=== PATIENT | male | born 1945 | race Caucasian/White ===

== ENCOUNTER 2016-08-04 11:08 | Emergency (ER) | payer MEDICARE, OTHER ==
[2016-08-04] MEDS ORDERED: HYDROmorphone 1 MG/ML Syringe IM ONE (11:46)
[2016-08-04] MEDS ORDERED: Ketorolac 30 MG/ML SDV IM ONE (11:46)
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
[2016-08-04] MEDS ORDERED: Sodium Chloride 0.9% 10 ML Syringe FLUSH PRN (12:02)
--- NOTE | 2016-08-04 13:38 | CR ---
Pelvis: AP view of the pelvis was obtained. Joint space narrowing is noted within both hips slightly worse on the right side. Sacroiliac joints appear within normal limits. Mild degenerative change is partially seen within the lower lumbar spine. Bony structures are osteopenic. Nothing acute is identified. Impression: 1. Joint space narrowing within both hips as well as degenerative change partially visualized within the lower lumbar spine. 2. Nothing acute is appreciated on AP pelvis study. Diagnostic code #2
[2016-08-04] MEDS ORDERED: predniSONE 20 MG Tab PO ONE (14:21)
[2016-08-04 16:47] VITALS: BP 130/84
== END 2016-08-04 15:15 | disposition home or self-care (01) ==
LOC: JD.ED 11:08
DX: M53.3 Sacrococcygeal disorders, not elsewhere classified (principal); R31.9 Hematuria, unspecified; Z79.82 Long term (current) use of aspirin; Z79.899 Other long term (current) drug therapy
CPT/HCPCS: 36415; 72170; 80053; 81001; 85025; 86140; 96372; 99284; A9270; J1170; J1885; J7050; 99283

== ENCOUNTER 2019-09-21 08:54 | Day surgery (SDC) | payer OTHER ==
[~2019-09-21 08:54] MED LIST: Lactated Ringers 1,000 ML IV SCH; Lidocaine 1% 4 ML ONE; Lidocaine 1%/Sod Bicarbonate in NS 8.4% 1 ML Syringe IDERM PRN; Midazolam 1 MG/ML 2 ML SDV ONE; Propofol 200 MG/20 ML SDV ONE; Sodium Chloride 0.9% 10 ML Syringe FLUSH PRN; fentaNYL 100 MCG/2 ML SDV ONE
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
--- NOTE | 2019-09-21 11:23 | PCM.PRNOTE ---
- Free Text/Narrative Note: Date: 09/21/2019 Procedure: screening colonoscopy Endoscopist: Zbigniew Chu MD Findings: nodular prostatic lesion palpated. B.B. sized palpable, well- circumscribed mobile subcutaneous lesion noted near anoderm. No polyps, no diverticular disease. Minor internal hemorrhoids. Detailed Report: The patient was taken to the endoscopy suite and placed in left lateral decubitus position. Time out was performed and monitored anesthesia care initiated. The anus appeared normal. There was a tiny palpable subcutaneous nodule near the anoderm. Digital exam was remarkable for a palpable nodule at the posterior surface of the prostate gland. The colonoscope was lubricated and inserted anally. The cecum was reached, and the appendiceal orifice visualized. Although I thought I saw a small polyp on the way in, very careful monitoring on withdrawal, twice, failed to show any polyps. The prep was very good. No divert icular disease was noted. There were minor internal hemorrhoids seen on retroflexion within the rectum. Air was then evacuated and the scope withdrawn. The patient tolerated the procedure well.
--- NOTE | 2019-09-21 11:24 | PCM48HPAN ---
Post Anesthesia Note - EVALUATION WITHIN 48HRS OF ANESTHETIC Vital Signs in Normal Range: Yes Patient Participated in Evaluation: Yes Respiratory Function Stable: Yes Airway Patent: Yes Cardiovascular Function Stable: Yes Hydration Status Stable: Yes Pain Control Satisfactory: Yes Nausea and Vomiting Control Satisfactory: Yes Mental Status Recovered: Yes Vital Signs: Last Vital Signs Temp 98.0 F 09/21/19 08:50 Pulse 79 09/21/19 08:50 Resp 16 09/21/19 08:50 BP 154/78 H 09/21/19 08:50 Pulse Ox 96 09/21/19 08:50 1116 76 16 98.0 131/74 92%
[2019-09-21 11:49] VITALS: BP 147/73; PULSE 69
== END 2019-09-21 12:07 | disposition home or self-care (01) ==
LOC: JD.SDS 08:54
PROVIDERS: ATTEND Surgery
DX: Z12.11 Encounter for screening for malignant neoplasm of colon (principal); K64.8 Other hemorrhoids; K62.89 Other specified diseases of anus and rectum; Z88.8 Allergy status to other drugs, medicaments and biological substances; Z79.82 Long term (current) use of aspirin; Z79.899 Other long term (current) drug therapy
CPT/HCPCS: 45378; J2001; J2250; J2704; J3010; J7120; 00812

== ENCOUNTER → 2021-04-28 | Day surgery (SDC) | payer MEDICARE, OTHER ==
[~2021-04-28] MED LIST changes: +Acetaminophen 325 MG Tab PO SCH; +HYDROmorphone 0.5 MG/0.5 ML Syringe IVPUSH PRN; +Lactated Ringers 1,000 ML ONE; -Lidocaine 1% 4 ML ONE; -Midazolam 1 MG/ML 2 ML SDV ONE; +Ondansetron 4 MG/2 ML SDV IVPUSH PRN; +Ondansetron 4 MG/2 ML SDV ONE; +Pregabalin 25 MG Cap PO SCH; +Sodium Chloride 0.9% 10 ML Syringe FLUSH SCH; +ceFAZolin 1 GM Vial ONE; +ePHEDrine 50 MG/ML SDV ONE; +fentaNYL 100 MCG/2 ML SDV IVPUSH PRN; +oxyCODONE 5 MG Tab PO ONE; +oxyCODONE ER 10 MG TAB.ER PO SCH
[2021-04-28] MEDS: Vancomycin 1 GM SDV ONE ×2 (08:00→08:17)
[2021-04-28] MEDS: Morphine 8 MG, EPINEPHrine 0.3 MG, Cefuroxime 750 MG, Ketorolac 30 MG, Sodium Chloride ... PRN ×10 (08:01→08:17)
[2021-04-28 11:11] VITALS: PULSE 72
[2021-04-28 13:10] VITALS: BP 128/72
== END | disposition home or self-care (01) ==
LOC: JD.SDS 06:48
PROVIDERS: ATTEND Orthopaedic Surgery
DX: M16.12 Unilateral primary osteoarthritis, left hip (principal); I10 Essential (primary) hypertension; E55.9 Vitamin D deficiency, unspecified; Z88.8 Allergy status to other drugs, medicaments and biological substances; Z79.82 Long term (current) use of aspirin; Z79.899 Other long term (current) drug therapy; Z98.890 Other specified postprocedural states
CPT/HCPCS: 27130; 36415; 73501; 86850; 86900; 86901; 97110; 97116; 97161; A9270; C1713; C1776; J0171; J0690; J0697; J1885; J2270; J2370; J2405; J2704; J3010; J3370; J7120; 01214; 99100

== ENCOUNTER 2021-05-04 14:52 | Emergency (ER) | payer OTHER ==
[2021-05-04 15:28] VITALS: BP 139/82; PULSE 81
== END 2021-05-04 19:20 | disposition home or self-care (01) ==
LOC: JD.ED 14:52
DX: R60.0 Localized edema (principal); E66.9 Obesity, unspecified; Z68.32 Body mass index [BMI] 32.0-32.9, adult; Z88.8 Allergy status to other drugs, medicaments and biological substances
CPT/HCPCS: 93971-26-LT; 93971-LT; 99283-25; 99284

== ENCOUNTER 2023-07-10 16:09 | Emergency (ER) | payer MEDICARE, OTHER ==
[2023-07-10 16:43] LABS: BASOPHILS PERCENT AUTO 0.2 % (0.0-1.0); HEMATOCRIT 47.5 % (42.0-52.0); HEMOGLOBIN 15.7 gm/dl (14.0-18.0); IMMATURE GRAN ABSOLUTE AUTO 0.08 K/mm3 (0.00-0.05); IMMATURE GRAN PERCENT AUTO 0.7 % (0.0-0.4); LYMPHOCYTES ABSOLUTE AUTO 0.5 K/mm3 (1.0-4.8); LYMPHOCYTES PERCENT AUTO 4.7 % (24.0-44.0); MEAN CORPUSCULAR HEMOGLOBIN 27.9 pg (28.0-32.0); MEAN CORPUSCULAR HGB CONC 33.1 g/dl (32.0-36.0); MEAN CORPUSCULAR VOLUME 84.5 fl (83.0-99.0); MEAN PLATELET VOLUME 8.6 fl (9.4-12.4); MONOCYTES ABSOLUTE AUTO 0.8 K/mm3 (0.0-0.8); MONOCYTES PERCENT AUTO 7.4 % (0.0-8.0); NEUTROPHILS ABSOLUTE AUTO 9.5 K/mm3 (1.8-7.7); PLATELET COUNT,PLT 163 K/mm3 (150-400); RED BLOOD CELL COUNT 5.62 M/mm3 (4.52-5.90)
[2023-07-10] MEDS: Sodium Chloride 0.9% 1,000 ML IV SCH (16:47)
[2023-07-10] MEDS: Loperamide 2 MG Cap PO ONE (16:47)
[2023-07-10] MEDS: Sodium Chloride 0.9% 10 ML Syringe FLUSH PRN (16:48)
[2023-07-10 16:57] LABS: APPEARANCE,URINE CLEAR (Clear); BILIRUBIN,URINE NEGATIVE (Negative); COLOR,URINE YELLOW (Yellow); GLUCOSE,URINE NEGATIVE (Negative); KETONES,URINE TRACE (Negative); LEUKOCYTE ESTERASE,URINE NEGATIVE (Negative); NITRITE,URINE NEGATIVE (Negative); OCCULT BLOOD,URINE 2+ (Negative); PH,URINE 5.5 (5.0-8.0); PROTEIN,URINE 1+ (Negative); UROBILINOGEN,URINE 0.2 (0.2-1.0)
[2023-07-10 17:09] LABS: BACTERIA,URINE MODERATE /hpf (FEW); MUCUS,URINE MODERATE /hpf (FEW); SQUAMOUS EPITHELIAL CELLS,UR 0-5 /hpf (0-5)
[2023-07-10 17:20] LABS: A/G RATIO 0.9 (1-2); ALBUMIN 3.4 g/dl (3.4-5.0); ANION GAP 18.6 (5-15); BILIRUBIN TOTAL 0.8 mg/dL (0.2-1.0); BUN/CREATININE RATIO 15.7 (14-18); C-REACTIVE PROTEIN 5.73 mg/dL (<0.30); CALCIUM 8.2 mg/dL (8.5-10.1); CREATININE 1.4 mg/dL (0.7-1.3); EST CRCL DRUG DOSING (CG) 37.22 mL/min; MAGNESIUM 1.7 mg/dL (1.8-2.4); POTASSIUM,K 3.6 mEq/L (3.5-5.1); PROTEIN TOTAL,TP 7.2 g/dl (6.4-8.2)
[2023-07-10 17:21] LABS: CORONAVIRUS COVID-19 NAA NEGATIVE (NEGATIVE); INFLUENZA A NAA NEGATIVE (NEGATIVE); RESPIRATORY SYNCYTIAL VIR NAA NEGATIVE (NEGATIVE)
[2023-07-10 18:56] VITALS: BP 122/77; PULSE 66
== END 2023-07-10 18:56 | disposition home or self-care (01) ==
LOC: JD.ED 16:09
DX: N20.0 Calculus of kidney (principal); R94.31 Abnormal electrocardiogram [ECG] [EKG]; R91.1 Solitary pulmonary nodule; Z88.8 Allergy status to other drugs, medicaments and biological substances; R19.7 Diarrhea, unspecified; Z79.82 Long term (current) use of aspirin; E78.00 Pure hypercholesterolemia, unspecified; Z86.16 Personal history of COVID-19
CPT/HCPCS: 0241U; 36415; 71045; 74176; 80053; 81001; 83690; 83735; 83880; 84484; 85025; 86140; 93005; 96360; 99285; A9270; J3490; J7030

== ENCOUNTER 2024-10-26 09:18 | Inpatient (IN) | payer MEDICARE, OTHER ==
[2024-10-26] MEDS ORDERED: Ondansetron 4 MG/2 ML SDV IV PRN (10:03)
[2024-10-26] MEDS: Sennosides/Docusate Sodium 50-8.6 MG Tab PO SCH (20:31)
[2024-10-27] MEDS: Ondansetron 4 MG Tab.DIS PO PRN (13:08)
[2024-10-27] MEDS: Magnesium Citrate Solution 296 ML Bottle PO ONE (17:21)
[2024-10-27] MEDS: Sennosides/Docusate Sodium 50-8.6 MG Tab PO SCH (21:51)
[2024-10-28] MEDS: Acetaminophen/oxyCODONE 325-5 MG Tab PO PRN (00:36)
[2024-10-28] MEDS: Sennosides/Docusate Sodium 50-8.6 MG Tab PO SCH (08:20)
[2024-11-01 10:06] LABS: BASOPHILS ABSOLUTE AUTO 0.1 K/mm3 (0.0-0.2); BASOPHILS PERCENT AUTO 0.3 % (0.0-1.0); EOSINOPHILS ABSOLUTE AUTO 0.0 K/mm3 (0.0-0.4); EOSINOPHILS PERCENT AUTO 0.1 % (0.0-6.0); IMMATURE GRAN ABSOLUTE AUTO 0.48 K/mm3 (0.00-0.05); IMMATURE GRAN PERCENT AUTO 2.0 % (0.0-0.4); LYMPHOCYTES ABSOLUTE AUTO 0.5 K/mm3 (1.0-4.8); LYMPHOCYTES PERCENT AUTO 2.1 % (24.0-44.0); MEAN PLATELET VOLUME 8.5 fl (9.4-12.4); MONOCYTES ABSOLUTE AUTO 1.3 K/mm3 (0.0-0.8); MONOCYTES PERCENT AUTO 5.2 % (0.0-8.0); NEUTROPHILS ABSOLUTE AUTO 21.8 K/mm3 (1.8-7.7); NEUTROPHILS PERCENT AUTO 90.3 % (41.0-71.0); NRBC ABSOLUTE 0.00 (0.00-0.02); NRBC PERCENT 0.0 % (0.0-0.2); RED BLOOD CELL COUNT 4.11 M/mm3 (4.52-5.90); WHITE BLOOD CELL COUNT,WBC 24.12 K/mm3 (3.9-11.3)
[2024-11-01 10:25] LABS: PLATELET COUNT,PLT 524 K/mm3 (150-400)
[2024-11-01 10:37] LABS: A/G RATIO 0.4 (1-2); ALANINE AMINOTRANSFERASE,ALT 81.0 U/L (16-63); ASPARTATE AMNIOTRANSFERASE,AST 21.0 U/L (15-37); BILIRUBIN TOTAL 0.8 mg/dL (0.2-1.0); BLOOD UREA NITROGEN,BUN 94.0 mg/dL (7-18); CARBON DIOXIDE,CO2 24.0 mEq/L (21-32); CHLORIDE,CL 100.0 mEq/L (98-107); CREATININE 4.9 mg/dL (0.7-1.3); EST CRCL DRUG DOSING (CG) 10.46 mL/min; ESTIMATED GFR 11.0 mL/min (>60); GLUCOSE RANDOM 156.0 mg/dL (70-99); POTASSIUM,K 5.6 mEq/L (3.5-5.1); PROTEIN TOTAL,TP 7.1 g/dl (6.4-8.2); SODIUM,NA 135.0 mEq/L (136-145)
[2024-11-01] MEDS: Calcium Gluconate 10% 1 GM/10 ML SDV IVPUSH STA (11:24)
[2024-11-01] MEDS: 50% Dextrose in Water 50 ML Syringe IVPUSH ONE (11:33)
[2024-11-01] MEDS: Insulin Regular, Human 100 Units/ML 10 ML Vial IV ONE (11:33)
[2024-11-01] MEDS ORDERED: Sodium Chloride 0.9% 10 ML Syringe FLUSH PRN (11:41)
[2024-11-01 11:49] LABS: PH,VENOUS 7.52 (7.30-7.40)
[2024-11-01 11:50] LABS: BASE EXCESS VENOUS 1.6 (-4.0-2.0); BICARBONATE,VENOUS 23.7 meq/L (22-26); O2 SATURATION VENOUS 83.4; PCO2 VENOUS 29.0 mmHg (41-51); PO2 VENOUS 49.0 mmHG (40-80)
[2024-11-01 12:05] LABS: LACTIC ACID 1.8 mmol/L (0.4-2.0)
[2024-11-01 12:19] LABS: APPEARANCE,URINE CLEAR (Clear); GLUCOSE,URINE NEGATIVE (Negative); OCCULT BLOOD,URINE 3+ (Negative)
[2024-11-01 12:29] LABS: EPITHELIAL CELLS,URINE 0-5 /hpf (0-5)
[2024-11-01] MEDS: VANCOmycin 1.5 GM/300 ML 1.5 GM in Premix Bag 1 BAG IV ONE (13:35)
[2024-11-01 14:39] VITALS: BP 111/51; PULSE 104
[2024-11-01] MEDS ORDERED: Sodium Chloride 0.9% 10 ML Syringe FLUSH SCH (21:00)
== END 2024-11-01 11:11 | disposition critical access hospital (66) | DRG 947 ==
LOC: JD.MS 10:00
PROVIDERS: ADMIT Family Medicine; ATTEND Student in an Organized Health Care Education/Training Program
DX: R53.1 Weakness (principal); A41.9 Sepsis, unspecified organism; N17.9 Acute kidney failure, unspecified; E78.00 Pure hypercholesterolemia, unspecified; I10 Essential (primary) hypertension; Z88.8 Allergy status to other drugs, medicaments and biological substances; Z79.82 Long term (current) use of aspirin; Z79.899 Other long term (current) drug therapy; Z79.01 Long term (current) use of anticoagulants; H91.90 Unspecified hearing loss, unspecified ear; H54.7 Unspecified visual loss; K21.9 Gastro-esophageal reflux disease without esophagitis; M19.90 Unspecified osteoarthritis, unspecified site; F41.9 Anxiety disorder, unspecified; E66.9 Obesity, unspecified; Z86.16 Personal history of COVID-19; Z90.89 Acquired absence of other organs; Z96.643 Presence of artificial hip joint, bilateral; R93.89 Abnormal findings on diagnostic imaging of other specified body structures; K59.00 Constipation, unspecified; N40.1 Benign prostatic hyperplasia with lower urinary tract symptoms; R33.8 Other retention of urine; R73.03 Prediabetes; E87.5 Hyperkalemia
CPT/HCPCS: 36415; 51798; 71045; 71045-26; 74018; 74018-26; 80053; 81001; 82803; 83605; 83735; 85025; 86140; 87040; 87086; 93005; 94760; 94761; 97110-GP; 97112-GP; 97116-GP; 97162-GP; 97166-GO; 97530-GO; 97530-GP; A9270-GY; J0612; J1815-GY; J2543; J3375; J7030

== ENCOUNTER 2024-11-01 13:38 | Inpatient (IN) | payer MEDICARE, OTHER ==
[2024-11-01] MEDS ORDERED: Ondansetron 4 MG Tab.DIS PO PRN (13:52)
[2024-11-01] MEDS ORDERED: Sodium Chloride 0.9% 10 ML Syringe FLUSH PRN ×2 (13:52)
[2024-11-01] MEDS: VANCOmycin 1.5 GM/300 ML 1.5 GM in Premix Bag 1 BAG IV ONE (16:19)
[2024-11-01 18:15] LABS: BLOOD UREA NITROGEN,BUN 73.0 mg/dL (7-18); CARBON DIOXIDE,CO2 24.0 mEq/L (21-32); CHLORIDE,CL 106.0 mEq/L (98-107); CREATININE 3.2 mg/dL (0.7-1.3); EST CRCL DRUG DOSING (CG) 16.02 mL/min; ESTIMATED GFR 19.0 mL/min (>60); GLUCOSE RANDOM 235.0 mg/dL (70-99); POTASSIUM,K 5.1 mEq/L (3.5-5.1); SODIUM,NA 140.0 mEq/L (136-145)
[2024-11-01] MEDS: Sodium Chloride 0.9% 10 ML Syringe FLUSH SCH ×2 (20:14)
[2024-11-01] MEDS: Sennosides/Docusate Sodium 50-8.6 MG Tab PO SCH (20:15)
[2024-11-01] MEDS: Insulin Lispro 100 Unit/ML 3 ML KwikPen SUBCUT SCH (21:37)
[2024-11-02 04:31] LABS: BASOPHILS ABSOLUTE AUTO 0.1 K/mm3 (0.0-0.2); BASOPHILS PERCENT AUTO 0.3 % (0.0-1.0); EOSINOPHILS ABSOLUTE AUTO 0.0 K/mm3 (0.0-0.4); EOSINOPHILS PERCENT AUTO 0.2 % (0.0-6.0); IMMATURE GRAN ABSOLUTE AUTO 0.62 K/mm3 (0.00-0.05); IMMATURE GRAN PERCENT AUTO 3.0 % (0.0-0.4); LYMPHOCYTES ABSOLUTE AUTO 1.0 K/mm3 (1.0-4.8); LYMPHOCYTES PERCENT AUTO 4.9 % (24.0-44.0); MEAN PLATELET VOLUME 8.8 fl (9.4-12.4); MONOCYTES ABSOLUTE AUTO 1.8 K/mm3 (0.0-0.8); MONOCYTES PERCENT AUTO 8.8 % (0.0-8.0); NEUTROPHILS ABSOLUTE AUTO 17.1 K/mm3 (1.8-7.7); NEUTROPHILS PERCENT AUTO 82.8 % (41.0-71.0); NRBC ABSOLUTE 0.00 (0.00-0.02); NRBC PERCENT 0.0 % (0.0-0.2); PLATELET COUNT,PLT 448 K/mm3 (150-400); RED BLOOD CELL COUNT 3.22 M/mm3 (4.52-5.90); WHITE BLOOD CELL COUNT,WBC 20.59 K/mm3 (3.9-11.3)
[2024-11-02 05:05] LABS: A/G RATIO 0.4 (1-2); ALANINE AMINOTRANSFERASE,ALT 81 U/L (16-63); ASPARTATE AMNIOTRANSFERASE,AST 32 U/L (15-37); BILIRUBIN TOTAL 0.6 mg/dL (0.2-1.0); BLOOD UREA NITROGEN,BUN 50 mg/dL (7-18); CARBON DIOXIDE,CO2 25 mEq/L (21-32); CHLORIDE,CL 111 mEq/L (98-107); CREATININE 1.8 mg/dL (0.7-1.3); EST CRCL DRUG DOSING (CG) 28.47 mL/min; ESTIMATED GFR 38 mL/min (>60); GLUCOSE RANDOM 144 mg/dL (70-99); POTASSIUM,K 4.5 mEq/L (3.5-5.1); PROTEIN TOTAL,TP 5.8 g/dl (6.4-8.2); SODIUM,NA 142 mEq/L (136-145)
[2024-11-02] MEDS: Sodium Chloride 0.9% 10 ML Syringe FLUSH PRN (11:17)
[2024-11-02] MEDS: Iopamidol 755 Mg/ML 100 ML Bottle IVPUSH ONE (11:17)
[2024-11-02] MEDS: VANCOmycin 1.25 GM/250 ML 1.25 GM in Premix Bag 1 BAG IV SCH (11:56)
[2024-11-03 05:07] LABS: A/G RATIO 0.3 (1-2); ALANINE AMINOTRANSFERASE,ALT 79.0 U/L (16-63); ASPARTATE AMNIOTRANSFERASE,AST 29.0 U/L (15-37); BILIRUBIN TOTAL 0.4 mg/dL (0.2-1.0); BLOOD UREA NITROGEN,BUN 23.0 mg/dL (7-18); CARBON DIOXIDE,CO2 27.0 mEq/L (21-32); CHLORIDE,CL 112.0 mEq/L (98-107); CREATININE 0.9 mg/dL (0.7-1.3); EST CRCL DRUG DOSING (CG) 56.94 mL/min; ESTIMATED GFR 86.0 mL/min (>60); GLUCOSE RANDOM 115.0 mg/dL (70-99); POTASSIUM,K 4.2 mEq/L (3.5-5.1); PROTEIN TOTAL,TP 5.7 g/dl (6.4-8.2); SODIUM,NA 145.0 mEq/L (136-145)
[2024-11-03 05:09] LABS: BASOPHILS ABSOLUTE AUTO 0.1 K/mm3 (0.0-0.2); BASOPHILS PERCENT AUTO 0.8 % (0.0-1.0); EOSINOPHILS ABSOLUTE AUTO 0.8 K/mm3 (0.0-0.4); EOSINOPHILS PERCENT AUTO 5.5 % (0.0-6.0); IMMATURE GRAN ABSOLUTE AUTO 0.63 K/mm3 (0.00-0.05); IMMATURE GRAN PERCENT AUTO 4.3 % (0.0-0.4); LYMPHOCYTES ABSOLUTE AUTO 1.2 K/mm3 (1.0-4.8); LYMPHOCYTES PERCENT AUTO 8.4 % (24.0-44.0); MEAN PLATELET VOLUME 8.7 fl (9.4-12.4); MONOCYTES ABSOLUTE AUTO 1.1 K/mm3 (0.0-0.8); MONOCYTES PERCENT AUTO 7.8 % (0.0-8.0); NEUTROPHILS ABSOLUTE AUTO 10.7 K/mm3 (1.8-7.7); NEUTROPHILS PERCENT AUTO 73.2 % (41.0-71.0); NRBC ABSOLUTE 0.00 (0.00-0.02); NRBC PERCENT 0.0 % (0.0-0.2); PLATELET COUNT,PLT 454 K/mm3 (150-400); RED BLOOD CELL COUNT 3.14 M/mm3 (4.52-5.90); WHITE BLOOD CELL COUNT,WBC 14.57 K/mm3 (3.9-11.3)
[2024-11-03] MEDS: Magnesium Sulfate 2 GM/50 mL 2 GM in Premix Bag 1 BAG IV ONE (12:57)
[2024-11-04 05:44] LABS: BASOPHILS ABSOLUTE AUTO 0.1 K/mm3 (0.0-0.2); BASOPHILS PERCENT AUTO 0.7 % (0.0-1.0); EOSINOPHILS ABSOLUTE AUTO 0.9 K/mm3 (0.0-0.4); EOSINOPHILS PERCENT AUTO 6.5 % (0.0-6.0); IMMATURE GRAN ABSOLUTE AUTO 0.76 K/mm3 (0.00-0.05); IMMATURE GRAN PERCENT AUTO 5.4 % (0.0-0.4); LYMPHOCYTES ABSOLUTE AUTO 1.1 K/mm3 (1.0-4.8); LYMPHOCYTES PERCENT AUTO 7.9 % (24.0-44.0); MEAN PLATELET VOLUME 8.4 fl (9.4-12.4); MONOCYTES ABSOLUTE AUTO 0.9 K/mm3 (0.0-0.8); MONOCYTES PERCENT AUTO 6.5 % (0.0-8.0); NEUTROPHILS ABSOLUTE AUTO 10.3 K/mm3 (1.8-7.7); NEUTROPHILS PERCENT AUTO 73.0 % (41.0-71.0); NRBC ABSOLUTE 0.00 (0.00-0.02); NRBC PERCENT 0.0 % (0.0-0.2); PLATELET COUNT,PLT 458 K/mm3 (150-400); RED BLOOD CELL COUNT 3.25 M/mm3 (4.52-5.90); WHITE BLOOD CELL COUNT,WBC 14.07 K/mm3 (3.9-11.3)
[2024-11-04 06:28] LABS: A/G RATIO 0.3 (1-2); ALANINE AMINOTRANSFERASE,ALT 95.0 U/L (16-63); ASPARTATE AMNIOTRANSFERASE,AST 31.0 U/L (15-37); BILIRUBIN TOTAL 0.5 mg/dL (0.2-1.0); BLOOD UREA NITROGEN,BUN 17.0 mg/dL (7-18); CARBON DIOXIDE,CO2 27.0 mEq/L (21-32); CHLORIDE,CL 110.0 mEq/L (98-107); CREATININE 0.8 mg/dL (0.7-1.3); EST CRCL DRUG DOSING (CG) 64.06 mL/min; ESTIMATED GFR 89.0 mL/min (>60); GLUCOSE RANDOM 116.0 mg/dL (70-99); POTASSIUM,K 4.1 mEq/L (3.5-5.1); PROTEIN TOTAL,TP 6.0 g/dl (6.4-8.2); SODIUM,NA 143.0 mEq/L (136-145)
[2024-11-04] MEDS: Magnesium Sulfate 2 GM/50 mL 2 GM in Premix Bag 1 BAG IV ONE (09:02)
[2024-11-05 05:30] LABS: BASOPHILS ABSOLUTE AUTO 0.1 K/mm3 (0.0-0.2); BASOPHILS PERCENT AUTO 0.7 % (0.0-1.0); EOSINOPHILS ABSOLUTE AUTO 0.9 K/mm3 (0.0-0.4); EOSINOPHILS PERCENT AUTO 6.8 % (0.0-6.0); IMMATURE GRAN ABSOLUTE AUTO 1.03 K/mm3 (0.00-0.05); IMMATURE GRAN PERCENT AUTO 7.6 % (0.0-0.4); LYMPHOCYTES ABSOLUTE AUTO 1.2 K/mm3 (1.0-4.8); LYMPHOCYTES PERCENT AUTO 8.5 % (24.0-44.0); MEAN PLATELET VOLUME 8.3 fl (9.4-12.4); MONOCYTES ABSOLUTE AUTO 0.9 K/mm3 (0.0-0.8); MONOCYTES PERCENT AUTO 6.5 % (0.0-8.0); NEUTROPHILS ABSOLUTE AUTO 9.5 K/mm3 (1.8-7.7); NEUTROPHILS PERCENT AUTO 69.9 % (41.0-71.0); NRBC ABSOLUTE 0.00 (0.00-0.02); NRBC PERCENT 0.0 % (0.0-0.2); PLATELET COUNT,PLT 424 K/mm3 (150-400); RED BLOOD CELL COUNT 3.19 M/mm3 (4.52-5.90); WHITE BLOOD CELL COUNT,WBC 13.62 K/mm3 (3.9-11.3)
[2024-11-05 06:03] LABS: A/G RATIO 0.4 (1-2); ALANINE AMINOTRANSFERASE,ALT 74.0 U/L (16-63); ASPARTATE AMNIOTRANSFERASE,AST 23.0 U/L (15-37); BILIRUBIN TOTAL 0.4 mg/dL (0.2-1.0); BLOOD UREA NITROGEN,BUN 16.0 mg/dL (7-18); CARBON DIOXIDE,CO2 26.0 mEq/L (21-32); CHLORIDE,CL 109.0 mEq/L (98-107); CREATININE 0.8 mg/dL (0.7-1.3); EST CRCL DRUG DOSING (CG) 64.06 mL/min; ESTIMATED GFR 89.0 mL/min (>60); GLUCOSE RANDOM 113.0 mg/dL (70-99); POTASSIUM,K 4.2 mEq/L (3.5-5.1); PROTEIN TOTAL,TP 5.9 g/dl (6.4-8.2); SODIUM,NA 142.0 mEq/L (136-145)
[2024-11-07 08:46] VITALS: PULSE 84
[2024-11-07] MEDS: Acetaminophen/oxyCODONE 325-5 MG Tab PO PRN (14:11)
[2024-11-07 15:52] VITALS: BP 140/70
== END 2024-11-07 15:59 | disposition home health service (06) | DRG 872 ==
LOC: JD.MS 16:16
PROVIDERS: ADMIT Student in an Organized Health Care Education/Training Program; ATTEND Family Medicine
PROC: 3E03329 Introduction of Other Anti-infective into Peripheral Vein, Percutaneous Approach (ICD-10-PCS; principal; 2024-11-01)
PROC: 0T9B70Z Drainage of Bladder with Drainage Device, Via Natural or Artificial Opening (ICD-10-PCS; 2024-11-01)
DX: A41.9 Sepsis, unspecified organism (principal); N17.9 Acute kidney failure, unspecified; N13.6 Pyonephrosis; R65.20 Severe sepsis without septic shock; K59.00 Constipation, unspecified; N40.1 Benign prostatic hyperplasia with lower urinary tract symptoms; R33.8 Other retention of urine; I10 Essential (primary) hypertension; E86.0 Dehydration; E87.5 Hyperkalemia; R26.2 Difficulty in walking, not elsewhere classified; R53.81 Other malaise; H54.7 Unspecified visual loss; E78.00 Pure hypercholesterolemia, unspecified; H91.90 Unspecified hearing loss, unspecified ear; E66.9 Obesity, unspecified; K21.9 Gastro-esophageal reflux disease without esophagitis; M19.90 Unspecified osteoarthritis, unspecified site; R93.89 Abnormal findings on diagnostic imaging of other specified body structures; F32.89 Other specified depressive episodes; R91.1 Solitary pulmonary nodule; F41.9 Anxiety disorder, unspecified; Z96.641 Presence of right artificial hip joint; Z88.8 Allergy status to other drugs, medicaments and biological substances; Z79.82 Long term (current) use of aspirin; Z79.01 Long term (current) use of anticoagulants; Z79.899 Other long term (current) drug therapy; Z68.33 Body mass index [BMI] 33.0-33.9, adult; Z86.16 Personal history of COVID-19; Z90.49 Acquired absence of other specified parts of digestive tract; Z90.89 Acquired absence of other organs
CPT/HCPCS: 36415; 51701; 51702; 51798; 72191; 72191-26; 74175; 74175-26; 74176; 74176-26; 80048; 80053; 80202; 82365; 82947; 83735; 84550; 85025; 86140; 87641; 94760; 94761; 97110-GP; 97116-GP; 97162-GP; 97166-GO; 97530-GO; 97530-GP; 97535-GO; A9270-GY; J0696; J2543; J3375; J3475; J7030; Q9967